=== PATIENT | male | born 1940 | race Caucasian/White ===

== ENCOUNTER → 2020-12-05 | Outpatient (CLI) | payer OTHER ==
[~2020-12-05] MED LIST: CENTRUM SILVER1 EAC5 PO; FISH OIL 1,0001 EAC9 PO; MAGNESIUM100 MG PO; OMEPRAZOLE 20 M20 M1 PO; SILDENAFIL CIT100 MG PO
[2020-12-05 09:27] LABS: HEMATOCRIT 40.2 % (42.0-52.0); HEMOGLOBIN 13.9 gm/dL (14.0-18.0); MCH 30.5 pg (26.0-34.0); MCHC 34.6 g/dL (28.0-37.0); MCV 88.2 fL (80.0-100.0); RBC 4.56 mil/uL (4.50-6.00); RDW 13.8 % (10.5-14.5); WBC 4.2 thou/uL (4.0-11.0)
[2020-12-05 09:34] LABS: URINE BILIRUBIN NEGATIVE (Negative); URINE BLOOD NEGATIVE (Negative); URINE CLARITY CLEAR; URINE COLOR YELLOW; URINE GLUCOSE-RANDOM* NEGATIVE (Negative); URINE KETONES NEGATIVE (Negative); URINE LEUKOCYTES-REFLEX NEGATIVE (Negative); URINE NITRITE-REFLEX NEGATIVE (Negative); URINE PROTEIN (DIPSTICK) NEGATIVE (Negative); URINE UROBILINOGEN 0.2 E.U./dl (0.2-1.0)
[2020-12-05 09:39] LABS: ALBUMIN 3.8 g/dL (3.4-5.0); CALCIUM 8.9 mg/dL (8.5-10.1); CREATININE 0.8 mg/dL (0.7-1.3); POTASSIUM 5.1 mmol/L (3.5-5.1)
[2020-12-05 09:40] LABS: INR 0.96; PROTIME 10.5 Seconds (10.5-12.1)
== END ==
LOC: PAC 07:43
PROVIDERS: Orthopaedic Surgery Sports Medicine; ATTEND Student in an Organized Health Care Education/Training Program
DX: Z01.818 Encounter for other preprocedural examination (principal); Z20.822 Contact with and (suspected) exposure to COVID-19; M17.0 Bilateral primary osteoarthritis of knee; M25.561 Pain in right knee

== ENCOUNTER 2020-12-11 06:08 | Observation (INO) | payer OTHER ==
[2020-12-11] VITALS (7 sets, daily range): BP systolic 130–146; BP diastolic 61–74
[~2020-12-11] VITALS: Ht 177.8 cm; Wt 71.7 kg
--- NOTE | 2020-12-11 13:05 | O ---
[facility] [place] [address] OPERATIVE REPORT Name: LUIS DONIS Room #: 444-P [facility]..#: [id number] Admission: 12/11/20 Attend Phys: Raheem Mckoy MD Discharge: Date of : 38 Report #: [id number] THIS REPORT FOR: cc: Physician not on staff Physician not on staff Raheem Mckoy MD ~ DOC #: [id number] Raheem Mckoy MD DATE OF SERVICE: 12/11/2020 SURGEON: Raheem Mckoy M.D. CRITICAL CARE TRANSPORT NURSE: Shawna Levine NP. Indications for assist in retraction, assistance with exposure, closure and reconstruction. PREOPERATIVE DIAGNOSIS: Severe right knee osteoarthritis. POSTOPERATIVE DIAGNOSIS: Severe right knee osteoarthritis. PROCEDURE PERFORMED: 1. Right total knee arthroplasty. 2. Robotic-assisted arthroplasty. COMPLICATIONS: None. DRAINS: None. SPECIMENS: None. ANESTHESIA: General with regional. FINDINGS: 1. Thorpe and Nephew Journey size 8 cruciate substituting cobalt chrome femoral component with size 7 tibial component and 9 polyethylene implant and 32 mm patella. 2. Well-balanced knee, utilizing the robotic and computer navigation assistance. INDICATION FOR PROCEDURE: The patient An 80-year-old gentleman with history of severe persistent, progressive right knee osteoarthritis that had failed conservative measures and was affecting his activities of daily living. He had tried physical therapy, injections, oral medicines, modalities without sufficient relief. He had x-rays that showed xqyo-kh-rvdr osteoarthritis with osteophytes, sclerosis and cyst and joint space narrowing. He was indicated for surgical treatment after failing conservative measures. Risks, benefits, alternatives and indications for surgery discussed with him in detail. Risks [facility] [address] [place] [address] OPERATIVE REPORT Name: LUIS DONIS Room #: 444-P [facility]..#: [id number] Admission: 12/11/20 Attend Phys: Raheem Mckoy MD Discharge: Date of : 38 Report #: [id number] include but not limited to pain, bleeding, infection, injuring nerves or blood vessels, persistent pain despite surgical intervention, failure of any repair, progression of preexisting chondral injury, stiffness, need for further surgery as well as complications related to anesthesia. Despite the risks, he wished to proceed. DESCRIPTION OF PROCEDURE: After right lower extremity was correctly identified in the preoperative holding area as the operative extremity, the patient underwent regional nerve block and then taken to the operating room where general anesthesia was induced without complication. He was padded appropriately. Prophylactic antibiotics were administered at appropriate time. TXA was administered at appropriate time as well. Tourniquet was applied to right leg. Right lower extremity was then prepped and draped in standard sterile fashion. Timeout procedure performed. Esmarch was used, tourniquet inflated to 250 mmHg. Standard anterior approach was made with medial parapatellar arthrotomy and the knee was exposed. Retropatellar fat pad was resected as was the anterior horn of the menisci. The cruciate ligaments were resected and the osteophytes as well. The half pins were then placed in the femur and the tibia and the [employer] and [employer] robotic system was then used to assess the patient's baseline parameters. We then sized him accordingly and assessed for the balancing and selected the trial implants for well-balanced knee, anticipating a slight medial release. The femur was then milled for the distal cut and then the 5-in-1 cutting block was used and then the tibia was prepared in similar fashion using the robotic assistance accordingly. The sizing blocks were then used with a 9 mm implant and the knee was balanced laterally and was slightly tight in both flexion and extension medially and so the lamina automatic vulcanizing lead operator was used to perform a slight medial release with the pie crust technique. The posterior capsule was then injected with the periarticular injection cocktail. I was happy with the balancing at this point and so the femur was prepared and then the trials were placed. We used the NAVIO then to reassess balancing range of motion, extension and alignment and was happy with the final impression. Knee was placed into extension and the patella was prepared for a 32 mm button and then all osteophytes were resected, including the posterior osteophytes and then the trial implants were removed after final preparations had been completed. We ensured that the remnants of the menisci and cruciates were adequately resected and the posterior osteophytes had loose bodies. The knee was again copiously irrigated and then a 2 mm drill bit was used to prepare the sclerotic bone in the medial tibia and then the final implants were cemented into position. Knee was placed into extension. We used the remaining portion of the periarticular injection cocktail while the cement was curing and then let the tourniquet down and obtained hemostasis. The knee was well-balanced in flexion and extension. We placed the final poly with a #9 insert at this point. The arthrotomy was then closed over a gram of vancomycin powder with 0 Vicryl [facility] [address] [place] [address] OPERATIVE REPORT Name: LUIS DONIS Room #: 444-P ADM [facility]#: [id number] Admission: 12/11/20 Attend Phys: Raheem Mckoy MD Discharge: Date of : 38 Report #: [id number] suture in qnqlar-ko-lreat fashion. [place] flexion test confirmed successful arthrotomy closure. Then the skin was closed with 2-0 Vicryl followed by running subcuticular Monocryl. A sterile dressing was applied followed by compression stocking and a PolarCare device and then the patient was awakened from anesthesia and taken to recovery room in stable condition. No complications. All counts were correct. Raheem Mckoy MD MPM/PUN <ELECTRONICALLY SIGNED> By: Raheem Mckoy MD 12/11/20 1305 [id number] Raheem Mckoy MD /nt
--- NOTE | 2020-12-11 14:25 | NUR ---
ASSESSMENT: CM REVIEWED CHART AND SPOKE WITH PATIENT AND HIS . PT IS ALERT AND ORIENTED X4. PT IS S/P RIGHT KNEE REPLACEMENT. PT REPORTS LIVING IN A HOUSE WITH HIS . PT HAS ABOUT 14 STEPS WITH A HANDRAIL FROM THE GARAGE TO TOP LEVEL. REPORTS IF THEY GO THROUGH THE YARD AND THEN IN THE FRONT DOOR THERE IS 7 WITH A HANDRAIL. PT HAS A WALKER AT HOME. PT IS NORMALLY INDEPENDENT WITH ADLS. PT HAS A GRAB BAR IN THE SHOWER. PT HAS NOT HAD HH IN THE PAST. CM RECEIVED A CONSULT TO ARRANGE OUTPATIENT THERAPY AT [facility] FOR THURSDAY 12/14. CM SPOKE WITH PT AND HIS AND SHE REPORTS SHE ALREADY HAD MADE AN APPOINTMENT FOR THURSDAY AT 10AM AT [facility] PT SHE CLARIFIED SHE ORIGINALLY PROVIDED THE WRONG NAME. CM FAXED PAPER ORDER TO OUTPATIENT PT TO [facility] IN [place] FAX [phone] AND NOTIFIED [facility]. PT WILL CONTINUE TO WORK WITH THERAPY. CM WILL CONTINUE TO FOLLOW.
--- NOTE | 2020-12-11 15:01 | NUR ---
Admitted from the OR approx 12nn, s/p R TKR; transferred to room safely. On MS, not on telemetry; no complains and signs of chest pain, crushing sensation and heaviness. Assisted in ADLs. Vital signs stable. On room air. On regular diet- tolerating well; no nausea, no vomiting and no abdominal pain. Continent of bowel and bladder, able to use urinal- output measured and recorded accordingly. With SL at L FA- D5LR at 100cc/hr infused as ordered. Post op site checked; dressing C/D/I-SHERMAN, SARAH hose, polar packs, SCDs in place. Admission assessment, history and education done. Admission forms signed. Pt's at bedside, update given. No complains of pain made during assessment. Pt seen and examined by physical therapist, pt able to walk in the hallway using walker, gait belt, falls bundle in place and knee precautions.
--- NOTE | 2020-12-11 18:00 | NUR ---
ASSUMED PT CARE FROM DAY NURSE 4S AT 1700. PT IS ALERT & ORIENTED X4. PT HAS BILATERAL AIDS AND DENTURE. PT NO C/O OF PAIN, NAUSEA AND VOMITING. PT USES URINAL. PT IS ON ROOM AIR. PT HAD SURGERY TODAY. PT HAS POLAR PACK, SCD, SARAH HOSES. PT WALK WTIH PT TODAY WITH WALKER AND GAITBELT. PT ON THE BED WATCHING TV, BED ON THE LOWEST POSITION, SIDE RAILS UP, CALL LIGHT WITHIN REACH. WILL CONTINUE TO MONITOR PT. FOLLOW POC. ENDORSE NIGHT NURSE.
--- NOTE | 2020-12-12 00:18 | NUR ---
ASSESSED AT START OF SHIFT. PT A&OX4. DENIES PAIN ON ASSESSEMENT. IV INTACT FLUIDS AND ABX INFUSING. URINAL BY BEDSIDE. SHERMAN, SCD'S TEDHOSE IN PLACE. PT DENIES N/V. ON RA. POLAR PACK INTACT. FALL PREC IN PLACE. NO FURTHER SIGNS OF DISCOMFORT. UP WITH ASSITX1 WITH A WALKER WILL CONT TO MONITOR TILL EOS.
[2020-12-12 05:25] LABS: BASOPHILS 0.4 % (0.0-2.0); EOSINOPHILS 0.2 % (0.0-3.0); HEMATOCRIT 34.2 % (42.0-52.0); HEMOGLOBIN 11.7 gm/dL (14.0-18.0); LYMPHOCYTES 13.9 % (24.0-44.0); MCH 29.9 pg (26.0-34.0); MCHC 34.3 g/dL (28.0-37.0); MCV 87.3 fL (80.0-100.0); MONOCYTES 8.2 % (1.0-8.0); PLATELET COUNT 167 thou/uL (150-400); POLYS 77.3 % (36.0-66.0); RBC 3.91 mil/uL (4.50-6.00); RDW 13.5 % (10.5-14.5); WBC 9.1 thou/uL (4.0-11.0)
[2020-12-12 05:34] LABS: CALCIUM 8.6 mg/dL (8.5-10.1); MAGNESIUM 1.8 mg/dL (1.8-2.4); POTASSIUM 4.6 mmol/L (3.5-5.1)
[2020-12-12 05:45] VITALS: BP 125/61
[2020-12-12 07:51] VITALS: BP 139/66
[2020-12-12 08:53] VITALS: BP 139/66
--- NOTE | 2020-12-12 10:20 | NUR ---
Received awake on bed. Due medications given as prescribed, able to swallow meds w/o difficulty. On room air. Vital signs stable. On MS, not on telemetry; no complains and signs of chest pain, crushing sensation and heaviness. Assisted in ADLs. On regular diet, tolerating well; no nausea, no vomiting and no abdominal pain noted. Continent of bowel and bladder, able to use with urinal and go to the toilet with standby assist, gait belt and walker; post op precautions observed. Falls bundle in place. With SL at L FA. S/P Total knee 12/11; post op dressing C/D/I, no bleeding and drainage noted; SHERMAN dressing, SARAH hose, SCDs and polar pack in place. With at bedside, update given. Ortho PA seen and examined patient this AM, ok for discharge once cleared by PT; patient seen by PT Reji and OT- cleared for discharge- patient and updated. Discharge instructions and follow up scheduled given and instructed; verified with pt's - discharge meds and instructions given by Dr Decker prior to admission and meds are refilled already; both acknowledged understanding of discharge orders, forms signed. CM informed re: d/c- no needs. IV discontinued. No telemetry noted. Pt fetched by his ; brought out of the unit via wheelchair with his personal belongings. Patient discharged.
--- NOTE | 2020-12-12 11:11 | NUR ---
ON-GOING ASSESSMENT: PT HAS ORDERS TO DISCHARGE HOME TODAY. OUTPATIENT THERAPY ALREADY ARRANGED. CASE CLOSED.
== END 2020-12-12 10:12 | disposition home or self-care (01) ==
LOC: OR → TBA 06:09 → OR 10:04 → 4S 11:43 → OR 12:31 → 4S 12-12 10:12
PROVIDERS: Nurse Practitioner; ADMIT Orthopaedic Surgery Sports Medicine; ATTEND Orthopaedic Surgery Sports Medicine
DX: M17.11 Unilateral primary osteoarthritis, right knee (principal); Z79.899 Other long term (current) drug therapy; Z87.19 Personal history of other diseases of the digestive system
CPT/HCPCS: 50010; 50101; 50415; 50954; 51130; 51225; 51320; 53000; 53078; 54118; 56527; 56528; 57095; 57103; 57110; 57127; 57180; 58239; 62110; 62900; 64039; 70005

== ENCOUNTER → 2021-06-25 | Outpatient (CLI) | payer OTHER ==
[2021-06-25 13:36] LABS: HEMATOCRIT 29.7 % (42.0-52.0); HEMOGLOBIN 9.2 gm/dL (14.0-18.0); MCH 22.6 pg (26.0-34.0); MCHC 31.1 g/dL (28.0-37.0); MCV 72.5 fL (80.0-100.0); RBC 4.09 mil/uL (4.50-6.00); RDW 16.6 % (10.5-14.5); WBC 4.5 thou/uL (4.0-11.0)
[2021-06-25 13:38] LABS: URINE BILIRUBIN NEGATIVE (Negative); URINE BLOOD NEGATIVE (Negative); URINE CLARITY CLEAR; URINE COLOR YELLOW; URINE GLUCOSE-RANDOM* NEGATIVE (Negative); URINE KETONES NEGATIVE (Negative); URINE LEUKOCYTES-REFLEX NEGATIVE (Negative); URINE NITRITE-REFLEX NEGATIVE (Negative); URINE PROTEIN (DIPSTICK) NEGATIVE (Negative); URINE SPECIFIC GRAVITY <= 1.005 (1.005-1.035); URINE UROBILINOGEN 0.2 E.U./dl (0.2-1.0)
[2021-06-25 13:49] LABS: PROTIME 10.9 Seconds (10.5-12.1)
[2021-06-25 13:52] LABS: ALBUMIN 3.8 g/dL (3.4-5.0); CALCIUM 8.9 mg/dL (8.5-10.1); CREATININE 0.8 mg/dL (0.7-1.3); POTASSIUM 4.2 mmol/L (3.5-5.1)
== END ==
LOC: PAC 11:57
PROVIDERS: ATTEND Orthopaedic Surgery Sports Medicine
DX: Z01.812 Encounter for preprocedural laboratory examination (principal); M17.12 Unilateral primary osteoarthritis, left knee

== ENCOUNTER → 2021-08-28 | Outpatient (CLI) | payer OTHER ==
[~2021-08-28] MED LIST changes: +CALCIUM + VITA1 EACH PO; +CARAFATE 1 GM TA1 G1 PO; +PRINIVIL20 MG PO; +PROTONIX40 M2 PO; +VITAMIN C500 M1 PO
[2021-08-28 12:59] LABS: HEMATOCRIT 42.5 % (42.0-52.0); HEMOGLOBIN 13.7 gm/dL (14.0-18.0); MCH 25.7 pg (26.0-34.0); MCHC 32.3 g/dL (28.0-37.0); MCV 79.6 fL (80.0-100.0); RBC 5.34 mil/uL (4.50-6.00); RDW 25.4 % (10.5-14.5); WBC 5.1 thou/uL (4.0-11.0)
[2021-08-28 13:01] LABS: URINE BILIRUBIN NEGATIVE (Negative); URINE BLOOD TRACE (Negative); URINE CLARITY CLEAR; URINE COLOR YELLOW; URINE GLUCOSE-RANDOM* NEGATIVE (Negative); URINE KETONES NEGATIVE (Negative); URINE LEUKOCYTES-REFLEX NEGATIVE (Negative); URINE NITRITE-REFLEX NEGATIVE (Negative); URINE PROTEIN (DIPSTICK) NEGATIVE (Negative); URINE SPECIFIC GRAVITY 1.015 (1.005-1.035); URINE UROBILINOGEN 0.2 E.U./dl (0.2-1.0)
[2021-08-28 13:21] LABS: ALBUMIN 3.9 g/dL (3.4-5.0); CREATININE 0.8 mg/dL (0.7-1.3); POTASSIUM 4.6 mmol/L (3.5-5.1)
--- NOTE | 2021-08-28 13:22 | EKG ---
[place] [address] [facility] [facility] [place] [address] ELECTROCARDIOGRAM REPORT Name: LUIS DONIS [facility] [id number] Admission: 08/28/21 Attend Phys: Raheem Mckoy MD Discharge: Date of : 38 Report #: [id number] [facility] Test Date: 2021-08-28 Test Time: 12:53:50 Pat Name: LUIS DONIS Department: Room: Gender: Associate Publisher: TAJ : 1940 Requested By: Raheem Mckoy Order Number: [id number] MD: Teja Murray Measurements Intervals [place] Rate: 70 P: 45 VA: 155 QRS: -54 QRSD: 120 T: 37 QT: 440 QTc: 475 Interpretive Statements Sinus rhythm Ventricular trigeminy Left anterior fascicular block Left ventricular hypertrophy No previous ECG available for comparison Electronically Signed On 08-28-2021 13:22:43 RUN LEAD by Teja Murray [email or web address] <ELECTRONICALLY SIGNED> By: Teja Murray MD, [facility] 08/28/21 1322 1253 1253 Teja Murray MD, FACC /EPI
[2021-08-28 13:28] LABS: INR 0.99; PROTIME 10.8 Seconds (10.5-12.1)
== END ==
LOC: PAC 11:47
PROVIDERS: ATTEND Orthopaedic Surgery Sports Medicine
DX: M17.12 Unilateral primary osteoarthritis, left knee (principal); M25.562 Pain in left knee

== ENCOUNTER → 2021-09-03 | Outpatient (CLI) | payer OTHER | LOC: LAB 08:36 | PROVIDERS: ATTEND Student in an Organized Health Care Education/Training Program | DX: Z20.822 Contact with and (suspected) exposure to COVID-19 (principal) ==

== ENCOUNTER 2021-09-04 06:20 | Observation (INO) | payer OTHER ==
[~2021-09-04] VITALS: Ht 172.7 cm; Wt 75.7 kg
[2021-09-04 07:27] VITALS: BP 162/82
[2021-09-04 15:47] VITALS: BP 149/86
[2021-09-04 19:07] VITALS: BP 141/81
--- NOTE | 2021-09-04 22:44 | O ---
[address] [address] OPERATIVE REPORT Name: LUIS DONIS Room #: 435-P REG [facility]..#: [id number] Admission: 09/04/21 Attend Phys: Raheem Mckoy MD Discharge: Date of : 38 Report #: [id number] THIS REPORT FOR: cc: FAM - Family physician unknown FAM - Family physician unknown Raheem Mckoy MD ~ DATE OF SERVICE: 09/04/2021 SERVICE: Orthopedics. FACILITY: [facility]. SURGEON: Raheem Mckoy MD RIPRAP WORKER: Shawna Levine NP INDICATIONS FOR RIPRAP WORKER: Retraction, exposure, assistance with the reconstruction and closure. PREOPERATIVE DIAGNOSES: 1. Left knee pain. 2. Left knee severe varus type osteoarthritis. 3. Left knee flexion contracture. POSTOPERATIVE DIAGNOSES: 1. Left knee pain. 2. Left knee severe varus type osteoarthritis. 3. Left knee flexion contracture. PROCEDURES PERFORMED: 1. Left total knee arthroplasty. 2. Robotic-assisted arthroplasty. COMPLICATIONS: None. DRAINS: None. SPECIMENS: None. IMPLANTS: Thorpe and Nephew cobalt chrome size 7 Journey II femoral component with size 7 tibial component, 10 poly insert and 32 mm patellar button. ESTIMATED BLOOD LOSS: 75 mL. HISTORY: The patient is an 80-year-old gentleman with a history of persistent and progressive bilateral knee osteoarthritis. He had successful right total [address] [address] OPERATIVE REPORT Name: LUIS DONIS Room #: 435-P REG [facility].#: [id number] Admission: 09/04/21 Attend Phys: Raheem Mckoy MD Discharge: Date of : 38 Report #: [id number] knee arthroplasty in 2020 and wished to have similar procedure on his left knee. He had fycp-sl-ctyw arthritis with osteophytes, sclerosis and has failed conservative measures to include rest, activity modifications, physical therapy, oral medicines and injection. He saw his primary care for preoperative clearance. He did have a noted anemia that was secondary to a GI bleed, which was addressed and then he was referred again for surgery after passing his medical clearance. Risks, benefits, alternatives and indications for surgery discussed with him in detail. Risks include but not limited to pain, bleeding, infection, injuring nerves or blood vessels, fracture, need for further surgery including revision as well as complications related to anesthesia. Despite the risks, he wished to proceed. PROCEDURE IN DETAIL: After left lower extremity was correctly identified in the preoperative holding area as the operative extremity, the patient underwent regional nerve block. He was then taken to the operating room where general anesthesia was induced without complications. He was padded appropriately. Prophylactic antibiotics were administered at appropriate time. Tourniquet was applied to left leg. Left lower extremity was then prepped and draped in standard, sterile fashion. Timeout procedure performed. Esmarch was used, tourniquet inflated to 250 mmHg. Standard anterior approach was made to the knee. Medial parapatellar arthrotomy was performed. Osteophytes were removed as were the cruciates and the anterior horns of the menisci. The checkpoints were placed and then the femoral and tibial half pins were placed. We used the [employer] and [employer] robotic-assisted platform for his total knee arthroplasty, utilizing the data for assessment of his initial parameters. He had approximately 9-degree flexion contracture and was in approximately 8 degrees of varus. We corrected him to neutral alignment and 0 flexion contracture ultimately. The baseline parameters were achieved. We assessed the balancing and then proceeded with milling of the distal femur and then the 5-in-1 cutting block was used to prepare the femur accordingly. We selected the 7 femur and templated for a 10 poly. The femur was prepared and then we turned attention towards the tibia. The tibia was cut utilizing the [employer] System[employer] navigation for placement of the tibial cut and then we sized the tibia for a 7, used a drop patti alignment to ensure appropriate alignment of the tibial component and then punched it in position. The sizing block was then used to assess the balancing in flexion and extension. The knee was well balanced. We then injected posterior capsule with the periarticular injection cocktail and then proceeded with final preparation of the femur for the femoral trial as well as the tibia for the tibial trial. These were placed, the 10 poly was inserted and the knee was taken through range of motion, utilizing the Cori. We had good balancing and I was happy with the balancing both on the navigation system as well as on direct visualization and in handling. The patella was then prepared to a 32 mm button. The osteophytes were resected off the patella. We selected our final components. [address] [address] OPERATIVE REPORT Name: LUIS DONIS Room #: 435-P REG [facility]#: [id number] Admission: 09/04/21 Attend Phys: Raheem Mckoy MD Discharge: Date of : 38 Report #: [id number] The trials were removed. The knee was copiously irrigated. The posterior osteophytes were removed and then the knee was irrigated once more and the final components were cemented into place. The 10 poly trial was placed and the knee was put into extension while the cement cured. We let the tourniquet down. I removed the Cori components and obtained hemostasis. The rest of the periarticular injection cocktail was then injected in the periosteum and the capsule and then we evaluated the balancing once more. I was happy with the 10 poly, so we selected the final 10 poly insert. The knee was irrigated a final time. The poly was placed into position and then the knee was placed into extension and had good balance and good range of motion. The knee was irrigated and then the parapatellar arthrotomy was closed with 0 Vicryl suture in ioqxsw-ry-lshep interrupted fashion. [place] flexion test was performed to confirm watertight closure and then skin was closed with 2-0 Vicryl followed by running subcuticular Monocryl and Dermabond. Sterile dressing was applied followed by a thigh-high compression stocking, a PolarCare and the patient was awakened from anesthesia and taken to recovery room in stable condition. No complications. All counts were reported as correct. <ELECTRONICALLY SIGNED> By: Raheem Mckoy MD 09/04/21 2244 1043 1059 Raheem Mckoy MD /nt
[2021-09-05 02:06] LABS: HEMATOCRIT 33.9 % (42.0-52.0); HEMOGLOBIN 10.9 gm/dL (14.0-18.0); MCH 25.6 pg (26.0-34.0); MCHC 32.3 g/dL (28.0-37.0); MCV 79.5 fL (80.0-100.0); PLATELET COUNT 154 thou/uL (150-400); RBC 4.26 mil/uL (4.50-6.00); RDW 24.5 % (10.5-14.5); WBC 10.4 thou/uL (4.0-11.0)
[2021-09-05 02:11] LABS: CALCIUM 8.4 mg/dL (8.5-10.1); MAGNESIUM 1.5 mg/dL (1.8-2.4); POTASSIUM 3.8 mmol/L (3.5-5.1)
[2021-09-05 06:32] LABS: ABSOLUTE NEUTROPHILS 9.5 thou/uL (1.4-8.2)
[2021-09-05 06:33] LABS: ANISOCYTOSIS 1+; BURR CELLS 1+; LARGE PLATELETS FEW; PLATELET ESTIMATE NORMAL; POIKILOCYTOSIS 1+; SCHISTOCYTES 1+
[2021-09-05 07:22] VITALS: BP 131/69
[2021-09-05 10:10] VITALS: BP 131/69
== END 2021-09-05 10:45 | disposition home or self-care (01) ==
LOC: OR 06:20 → 4S 12:21 → OR 12:22 → 4S 09-05 10:45
PROVIDERS: Nurse Practitioner; ADMIT Orthopaedic Surgery Sports Medicine; ATTEND Orthopaedic Surgery Sports Medicine
DX: M17.12 Unilateral primary osteoarthritis, left knee (principal); I10 Essential (primary) hypertension; M21.162 Varus deformity, not elsewhere classified, left knee; M24.562 Contracture, left knee; Z86.73 Personal history of transient ischemic attack (TIA), and cerebral infarction without residual deficits; Z87.19 Personal history of other diseases of the digestive system; Z79.899 Other long term (current) drug therapy
CPT/HCPCS: 27447; S2900; 10102; 50010; 50101; 50415; 50954; 51130; 51225; 51320; 52001; 52282; 53000; 53078; 54118; 56527; 56528; 57095; 57103; 57110; 57179; 58239; 70005